=== PATIENT | female | born 1955 | race Caucasian/White ===

== ENCOUNTER 2016-11-08 15:09 | Emergency (ER) | payer MEDICARE, MEDICAID ==
[~2016-11-08 15:09] MED LIST: ADVIL200 M1 PO; ALBUTEROL0.83 MG/ML INH; BROVANA15 MCG/2 M IH; BUDESONIDE0.5 MG/2 M IH; CALCIUM500 MG PO; CLARITIN10 M5 PO; COMPAZINE10 M PO; DALIRESP500 MCG PO; FLEXERIL 10MG PO; FLONASE16 G1; KEFLEX500 MG PO; LEVAQUIN500 MG PO; MOTRIN600 MG PO; MUCINEX600 MG PO; NASACORT AQ16.5 GM NS; NO MEDICATIONS; NORCO 7.5/3251 TAB PO; PERCOCET 5/3251 TAB PO; PREDNISONE10 MG PO; PRINIVIL10 M1 PO; SENOKOT-S TABLE1 TAB PO; TAMIFLU75 MG PO; TESSALON PERLE100 MG PO; TYLENOL325 MG PO; VENTOLIN HFA8 GM IH; VICODIN 5/500 T1 TAB PO; XYZAL5 MG PO; ZITHROMAX250MG Z-PAK PO; ZPAK
[2016-11-08 15:53] LABS: URINE APPEARANCE CLEAR; URINE BILIRUBIN NEGATIVE (NEG); URINE BLOOD NEGATIVE (NEG); URINE COLOR COLORLESS; URINE GLUCOSE (UA) NEGATIVE (NEG); URINE KETONE NEGATIVE (NEG); URINE LEUKOCYTE ESTERASE NEGATIVE (NEG); URINE NITRITE NEGATIVE (NEG); URINE PROTEIN NEGATIVE (NEG)
[2016-11-08 18:07] LABS: BASO % 0.5 % (0-2); EOS % 1.7 % (0-7); EOSINOPHIL ABSOLUTE COUNT 0.2 tho/cmm (0.0-0.7); HCT-HEMATOCRIT 39.6 % (34.0-49.0); IMMATURE GRANULOCYTES ABSOLUTE 0.02 tho/cmm (0-0.03); IMMATURE GRANULOCYTES PERCENT 0.2 % (0-0.3); LYMPH % 27.7 % (20-45); LYMPH ABSOLUTE COUNT 2.4 tho/cmm (0.8-4.5); MCH (MEAN CORPUSCULAR HGB) 29.7 pg (28.0-32.0); MCHC MEAN CORPUSCULAR HGB CONC 32.8 % (32.0-36.0); MCV (MEAN CELL VOLUME) 90.4 fl (82.0-96.0); MEAN PLATELET VOLUME 10.2 cmc (9.4-12.4); MONO % 6.6 % (0-12); MONOCYTE ABSOLUTE COUNT 0.6 tho/cmm (0.0-1.2); NEUTROPHIL ABSOLUTE COUNT 5.5 tho/cmm (1.6-8.0); NEUTROPHIL-AUTOMATED 5.5 tho/cmm (1.6-8.0); NEUTROPHILS % 63.3 % (40-80); PLATELET COUNT 328 tho/cmm (150-450); RED BLOOD COUNT 4.38 mil/cmm (4.00-5.20); RED CELL DISTRIBUTION WIDTH 13.8 % (12.4-16.4); WHITE BLOOD COUNT 8.7 tho/cmm (4.0-10.0)
[2016-11-08 18:22] LABS: ALBUMIN 4.1 g/dl (3.5-5.0); ALKALINE PHOSPHATASE 99 U/L (33-138); ALT/SGPT 36 U/L (12-78); ANION GAP 13 mmol/L (0-20); AST/SGOT 22 U/L (10-40); BILIRUBIN,TOTAL 0.3 mg/dl (0-1.5); BLOOD UREA NITROGEN 16 mg/dl (6-24); CALCIUM 9.3 mg/dl (8.5-10.5); CARBON DIOXIDE-VENOUS 25 mmol/L (22-32); CHLORIDE 106 mmol/l (96-110); GLUCOSE 103 mg/dL (70-110); SODIUM 140 mmol/L (135-145); eGFR VALUE FOR BLACK 71 mL/Min
[2016-11-08] MEDS ORDERED: PERCOCET 5-3251 EACH PO (18:55)
[2016-11-08] MEDS ORDERED: ZOFRAN4 M2 PO (18:56)
== END 2016-11-08 19:04 ==
LOC: EDMED 15:09
PROVIDERS: Emergency Medicine; Family Medicine
DX: N20.0 Calculus of kidney (principal); N28.1 Cyst of kidney, acquired; I10 Essential (primary) hypertension; Z87.442 Personal history of urinary calculi; J45.909 Unspecified asthma, uncomplicated; Z90.89 Acquired absence of other organs; Z98.890 Other specified postprocedural states
CPT/HCPCS: J1885; J2270; J2405; J7030